=== PATIENT | female | born 1970 | race Caucasian/White ===

== ENCOUNTER 2017-11-05 19:33 | Emergency (ER) | payer OTHER ==
[2017-11-05 20:42] VITALS: BP 132/92
--- NOTE | 2017-11-05 20:54 | UC ---
Respiratory Complaint HPI - HPI Summary HPI Summary: C/O cough x 2 weeks with some wheezing. - History of Current Complaint Chief Complaint: UCGeneralIllness Stated Complaint: COUGH Time Seen by Provider: 11/05/17 20:45 Hx Obtained From: Patient Hx Last Menstrual Period: 09/05/14 ?: No Onset/Duration: Gradual Onset, Lasting Weeks - 2, Still Present Severity Initially: Moderate Severity Currently: Mild Pain Intensity: 0 Character: Cough: Nonproductive Alleviating Factors: Nothing Associated Signs And Symptoms: Positive: Wheezing, URI Related History: Seasonal Allergies - Allergies/Home Medications Allergies/Adverse Reactions: Allergies Allergy/AdvReac Type Severity Reaction Status Date / Time No Known Allergies Allergy Verified 11/05/17 20:42 PMH/Surg Hx/FS Hx/Imm Hx - Surgical History Surgical History: Yes Surgery Procedure, Year, and Place: T+A. R rotator cuff 2011 [facility] [place]. Vaginal tear repair 2010 [facility] [place]. Turbinate reduction 2008 [place]. Cysto stent [facility] [place]. Appendectomy 11/2015 at [facility] [place]. Trigger release right thumb 09/2015, & 2016 at [facility] [place]. LAP APPY [facility] [place] - Family History Known Family History: Positive: Cardiac Disease, Hypertension, Diabetes Family History: R & n/C - Social History Occupation: Employed Full-time Lives: With Family Alcohol Use: Occasionally Alcohol Amount: a couple/week Substance Use Type: None Smoking Status (MU): Former Smoker Type: Cigarettes Amount Used/How Often: 1/2 PPD X 26 YEARS Have You Smoked in the Last Year: No When Did the Patient Quit Smoking/Using Tobacco: 05/24/2015 Household Exposure Type: Cigarettes - Immunization History Most Recent Influenza Vaccination: FALL 2014 Most Recent Tetanus Shot: Unknown Most Recent Pneumonia Vaccination: Has not had Review of Systems Respiratory: Cough Is Patient Immunocompromised?: No All Other Systems Reviewed And Are Negative: Yes Physical Exam Triage Information Reviewed: Yes Appearance: Well-Appearing, No Pain Distress, Well-Nourished Vital Signs: Initial Vital Signs Temp 99.6 F 11/05/17 20:36 Pulse 70 11/05/17 20:36 Resp 12 11/05/17 20:36 BP 132/92 11/05/17 20:36 Pulse Ox 99 11/05/17 20:36 Vital Signs Reviewed: Yes Eyes: Positive: Conjunctiva Clear ENT: Positive: Nasal congestion, TMs normal Neck exam: Normal Respiratory: Positive: Wheezing - expiratory wheeze with cough Cardiovascular Exam: Normal Musculoskeletal Exam: Normal Neurological Exam: Normal Psychological Exam: Normal Skin Exam: Normal UC Diagnostic Evaluation - Laboratory O2 Sat by Pulse Oximetry: 99 Respiratory Course/Dx - Differential Dx/Diagnosis Differential Diagnosis/HQI/PQRI: Asthma, Lower Resp Infection, Sinusitis Provider Diagnoses: Acute bronchospasm. Allergic rhinitis Discharge - Discharge Plan Condition: Stable Disposition: HOME Prescriptions: predniSONE TAB* [Deltasone TAB*] 20 mg PO DAILY #18 tab Patient Education Materials: Bronchospasm (ED), Prednisone (By mouth) Referrals: Humble Burleson DO [Primary Care Provider] - Additional Instructions: NEILMED SINUS RINSE: CHECK OUT AT [facility]. Saline nasal wash helps with mucous, allergies and congestion. It can be used up to twice a day or only as needed. Use lukewarm tap water. It does not have to be sterilized or distilled water. Do 1/3 on each side and snort out of both nostrils. Repeat the process with 1/6 of the bottle on each side with snorting in between to finish the solution in the bottle
[2017-11-05] MEDS ORDERED: Albuterol HFA INHALER* 8 gm MDI INH ONE ×2 (20:55→20:58)
== END 2017-11-05 21:30 | disposition home or self-care (01) ==
LOC: UCCORT 19:33
DX: J30.9 Allergic rhinitis, unspecified (principal); J98.01 Acute bronchospasm; Z87.891 Personal history of nicotine dependence
CPT/HCPCS: 99212; A9270-GY; G0463

== ENCOUNTER 2019-12-27 12:42 | Emergency (ER) | payer OTHER ==
--- OUTSIDE RECORDS SUMMARY | 2019-12-27 12:53 | XMS REPORT | Continuity of Care Document ---
:1970 External Reference #:[id number] Author Name Humble Burleson D.O. (transmitted by agent of provider Iva Mitchell) Address [address] [place] [id number] Care Team Providers Name Role Phone JuancarlosEleDO jewell - Pain Medicine Care Team Information Small Engine Trainer Beto Robb MD - Allergy & Care Team Information Small Engine Trainer [phone] Immunology Jessica Johnson MD - Obstetrics & Care Team Information Small Engine Trainer [phone] Gynecology Nathan Hanson MD - Infectious Care Team Information Small Engine Trainer [phone] Disease Problems Active Problems Provider Date Migraine without aura, not refractory Jose Enrique Islas M.D. Onset: 09/06/2011 Dysthymia Jose Enrique Islas M.D. Onset: 09/06/2011 Urolith Jose Enrique Islas M.D. Onset: 01/24/2015 Adjustment disorder with mixed emotional Humble Burleson D.O. Onset: 2015 features Snapping thumb syndrome Humble Burleson D.O. Onset: 02/10/2016 Folliculitis decalvans Humble Burleson D.O. Onset: 05/23/2018 Gastroparesis syndrome Rosalinda Oleary Onset: 04/25/2019 Social History Type Date Description Comments Sex Unknown Tobacco Use Start: Unknown End: Former Cigarette Smoker Stopped in Sep. Prev Unknown 15 yr hx of smoking 1/2-1 ppd Smoking Status Reviewed: 11/16/19 Former Cigarette Smoker Stopped in [place]. Prev 15 yr hx of smoking 1/2-1 ppd ETOH Use Drinks Alcohol Occasionally Tobacco Use Start: Unknown Non Smoker Allergies, Adverse Reactions, Alerts Active Allergies Reaction Severity Comments Date Vancomycin Red Man's Syndrome When treating sepsis due to 05/20/2018 MRSA Inactive Allergies NKDA 12/05/2003 Medications Active Medications SIG Qnty Indications Ordering Date Provider Quetiapine Fumarate 50 mg once daily at 60tabs G47.00 [facility], 12/17/2019 bedtime; increase to Humble, D.O. 50mg Tablets 100 mg once daily on day 2 then continue 2 daily Hydroxyzine Pamoate 1 by mouth for 90caps [facility], 11/16/2019 anxiety and at night Humble, D.O. 100mg Capsules for insomnia Omeprazole take one capsule by 90caps K21.9 [facility], 11/15/2019 20mg mouth every day 30-60 Humble, D.O. Capsules DR minutes before a meal Bactrim DS 1 twice a day x 10 20tabs [facility], 11/10/2019 800-160mg days Humble, D.O. Tablets Trueplus Insulin use needle with b12 9units E53.8 [facility], 10/18/2019 Syringe/U-100/1ML/29G injection every Humble, D.O. X 1/2" 10days 29G X 1/2" 1 ML Misc Ondansetron 1-2 by mouth three 10tabs [facility], 09/18/2019 4mg Tablets times a day as needed Humble, D.O. Dispers for nausea Fluocinonide apply to affected 60ml R21 [facility], 08/06/2019 0.05% areas on scalp twice Humble, D.O. Solution a day as needed for psoriasis Operand Chlorhexidine wash daily for 14 473ml [facility], 08/03/2019 Gluconate days Humble, D.O. 4% Liquid Mupirocin apply to nares twice 22gm [facility], 08/03/2019 2% Ointment a day x10 days Humble, D.O. Cyanocobalamin inject 1ml 25ml [facility], 11/10/2018 intramuscularly every Humble, D.O. 1000mcg/ML Solution 10 days Probiotic 1 by mouth every day Unknown 05/22/2018 Capsules Neti Pot Kit Sinus use as directed [facility] Wash/Clear View Sharri Kate Kettle 2300-700mg Kit Escitalopram Oxalate take 1 tablet by 90tabs Benjy, 11/14/2015 mouth once daily Sharri Kate 20mg Tablets Alprazolam 1/2-1 by mouth twice [facility], 10/29/2015 0.5mg a day code a mdd 2 Sharri Kate Tablets Fluticasone 2 sprays into each 16gm Silcoff, 03/19/2015 Propionate nostril every day for [place] 50mcg/Act nasal congestion as Suspension needed Sumatriptan Succinate 1 tablet by mouth at 6tabs G43.009 Benjy, 2010 first sign of Sharri Kate 100mg Tablets migraine; may repeat in 2 hours if migraine partially relieved MDD 200mg History Medications Trueplus Insulin [facility], 10/18/2019 - Syringe/U-100/0.5ML/31G X Sharri Kate 10/18/2019 5/16" 31G X 5/16" 0.5 ML Misc Bactrim DS 1 twice a [facility]tabs [facility], 09/17/2019 - 800-160mg Tablets day x 10 [place] 09/27/2019 days Amoxicillin/Clavulanate 1 tab by 20tabs J01.90 Janel, 08/08/2019 - Potassium mouth twice [place] 08/18/2019 875-125mg Tablets a day x10 days H66.93 Temazepam Take 1 capsule by 30caps G47.00 Humble Burleson, 08/03/2019 - 30mg mouth daily at D.ODanilo 11/16/2019 Capsules bedtime as needed for trouble sleeping Medications Administered in Office Medication SIG Qnty Indications Ordering Provider Date B12 Injection Humble Burleson D.O. 11/10/2018 Injection SC/Im Injections Humble Burleson D.O. 11/10/2018 Injection B12 Injection Humble Burleson D.O. 10/20/2018 Injection SC/Im Injections Humble Burleson D.ODanilo 10/20/2018 Injection injection, kenalog, 10 mg Humble Burleson D.ODanilo 12/17/2016 Injection injection, kenalog, 10 mg Humble Burleson D.O. 09/03/2016 Injection injection, kenalog, 10 mg Humble Burleson D.O. 02/10/2016 Injection Immunizations CPT Code Status Date Vaccine Lot # [id number] Given 06/15/2019 Influenza Virus Vaccine, Quadrivalent, Split, [id number] Preservative Free 28492 Given 08/04/2018 Influenza Virus Vaccine, Quadrivalent, Split, [id number] Preservative Free 33271 Given 06/28/2017 Influenza Virus Vaccine, Quadrivalent, Split, [id number] Preservative Free 49667 Given 06/18/2016 Influenza Virus Vaccine, Quadrivalent, Split, [id number] Preservative Free 52176 Given 07/25/2015 Influenza Virus Vaccine, Quadrivalent, Split, [id number] Preservative Free 90662 Given 07/31/2014 Influenza Virus Vaccine, Quadrivalent, Split, [id number] Preservative Free 66785 Given 07/17/2013 Flu, Split Virus 3Yrs [id number] 19840 Given 06/21/2012 Flu, Split Virus 3Yrs [id number] 13143 Given 03/30/2011 Pneumococcal Immunization [id number] 01348 Given 03/30/2011 Adacel or Boostrix, TDaP [id number] 70743 Given 07/28/2010 Flu, Split Virus 3Yrs [id number] 97559 Given 06/06/2009 Flu, Split Virus 3Yrs [id number] Vital Signs Date Vital Result Comment 11/16/2019 1:00pm BP Systolic 120 mmHg BP Diastolic 80 mmHg 09/17/2019 4:53pm BP Systolic 124 mmHg BP Diastolic 84 mmHg Body Temperature 98.6 F Results Description No Information Available Procedures Date Code Description Status 11/16/2019 28204 Omt 7-8 Body Regions Completed 08/03/2019 91563 Omt 7-8 Body Regions Completed 03/16/2017 63223044 Mammogram Completed Medical Devices Description No Information Available Encounters Type Date Location Provider Dx Diagnosis Office Visit 12/17/2019 Main Office Sopchak, Humble, G47.00 Insomnia, unspecified 5:00p D.O. Office Visit 11/16/2019 Main Office Humble Burleson, M54.2 Cervicalgia 12:55p D.O. M54.5 Low back pain K31.84 Gastroparesis F43.23 Adjustment disorder with mixed anxiety and depressed mood M99.03 Segmental and somatic dysfunction of lumbar region M99.04 Segmental and somatic dysfunction of sacral region M99.05 Segmental and somatic dysfunction of pelvic region M99.00 Segmental and somatic dysfunction of head region M99.01 Segmental and somatic dysfunction of cervical region M99.08 Segmental and somatic dysfunction of rib cage M99.02 Segmental and somatic dysfunction of thoracic region Office Visit 09/17/2019 4:30p Main Office Vicky Mcleod, L03.317 Cellulitis of MD ding Z86.14 Personal history of methicillin resis staph infection Office Visit 08/08/2019 11:20a Main Office Morena Bajwa, J01.90 Acute sinusitis, PA unspecified H66.93 Otitis media, unspecified, bilateral Office Visit 08/03/2019 12:55p Main Office Humble Burleson D.Josh. K31.84 Gastroparesis F43.23 Adjustment disorder with mixed anxiety and depressed mood E66.9 Obesity, unspecified K58.0 Irritable bowel syndrome with diarrhea M99.08 Segmental and somatic dysfunction of rib cage M99.00 Segmental and somatic dysfunction of head region M99.01 Segmental and somatic dysfunction of cervical region M99.02 Segmental and somatic dysfunction of thoracic region M99.03 Segmental and somatic dysfunction of lumbar region M99.05 Segmental and somatic dysfunction of pelvic region M99.04 Segmental and somatic dysfunction of sacral region M99.06 Segmental and somatic dysfunction of lower extremity G47.00 Insomnia, unspecified Z68.32 Body mass index (BMI) 32.0-32.9, adult Assessments Date Code Description Provider 12/17/2019 G47.00 Insomnia, unspecified Humble Burleson D.O. 11/16/2019 M54.2 Cervicalgia Humble Burleson D.O. 11/16/2019 M54.5 Low back pain Humble Burleson D.O. 11/16/2019 K31.84 Gastroparesis Humble Burleson D.O. 11/16/2019 F43.23 Adjustment disorder with mixed anxiety and SopchakHumble , D.O. depressed mood 11/16/2019 M99.03 Segmental and somatic dysfunction of lumbar SopchristakHumble , D.O. region 11/16/2019 M99.04 Segmental and somatic dysfunction of sacral SopchakHumble , D.O. region 11/16/2019 M99.05 Segmental and somatic dysfunction of pelvic SopchakHumble , D.O. region 11/16/2019 M99.00 Segmental and somatic dysfunction of head SopchakSamiron, D.O. region 11/16/2019 M99.01 Segmental and somatic dysfunction of cervical SopchakHumble, D.O. region 11/16/2019 M99.08 Segmental and somatic dysfunction of rib cage Humble Burlseon, D.O. 11/16/2019 M99.02 Segmental and somatic dysfunction of thoracic SopchakHumble, D.O. region 09/17/2019 L03.317 Cellulitis of buttock Vicky Mcleod MD 09/17/2019 Z86.14 Personal history of Methicillin resistant Vicky Mcleod MD Staphylococcus aureus infection 08/08/2019 J01.90 Acute sinusitis, unspecified Morena Bajwa PA 08/08/2019 H66.93 Otitis media, unspecified, bilateral Morena Bajwa PA 08/03/2019 K31.84 Gastroparesis Humble Burleson D.O. 08/03/2019 F43.23 Adjustment disorder with mixed anxiety and SopHumble mora D.O. depressed mood 08/03/2019 E66.9 Obesity, unspecified SopchristakSamiron, D.O. 08/03/2019 K58.0 Irritable bowel syndrome with diarrhea Humble Burleson, D.O. 08/03/2019 M99.08 Segmental and somatic dysfunction of rib cage SopchristakHumble, D.O. 08/03/2019 M99.00 Segmental and somatic dysfunction of head SopchakHumble, D.O. region 08/03/2019 M99.01 Segmental and somatic dysfunction of cervical SopchristakHumble, D.O. region 08/03/2019 M99.02 Segmental and somatic dysfunction of thoracic Humble Burleson D.O. region 08/03/2019 M99.03 Segmental and somatic dysfunction of lumbar SopHumble mora D.O. region 08/03/2019 M99.05 Segmental and somatic dysfunction of pelvic SopHumble mora D.O. region 08/03/2019 M99.04 Segmental and somatic dysfunction of sacral SopHumble mora D.O. region 08/03/2019 M99.06 Segmental and somatic dysfunction of lower SopHumble mora D.Josh. extremity 08/03/2019 G47.00 Insomnia, unspecified Humble Burleson D.O. 08/03/2019 Z68.32 Body mass index (BMI) 32.0-32.9, adult Humble Burleson D.O. Plan of Treatment Future Appointment(s):12/20/2019 10:00 am - Humble Burleson D.O. at Main Deoycl5503/14/2020 12:55 pm - Humble Burleson D.O. at Main Bqkrug4701/15/2020 1:30 pm - Humble Burleson D.O. at Main Xahvoo9612/17/2019 - Humble Burleson D.O.G47.00 Insomnia, unspecifiedNew Medication:Quetiapine Fumarate 50 mg - 50 mg once daily at bedtime; increase to 100 mg once daily on day 2 thencontinue 2 dailyComments:TOV: 15min between video and phone call.Follow up:Telemed visit in 2 days recheck sleep. Functional Status Description No Information Available Mental Status Description No Information Available Referrals Refer to Reason for Referral Status Appt Date Nathan Hanson MD Recurrent skin infections Consult and Treat Sent [facility] [address] [place] [address], [place] [address] [phone]
--- OUTSIDE RECORDS SUMMARY | 2019-12-27 12:53 | XMS REPORT | Continuity of Care Document ---
:1970 External Reference #:[id number] Author Name Humble Burleson D.O. (transmitted by agent of provider Elaine Ac) Address [address] [place] [phone] Care Team Providers Name Role Phone JuancarlosEleDO jewell - Pain Medicine Care Team Information Airport Manager Beto Robb MD - Allergy & Care Team Information Airport Manager [phone] Immunology Jessica Johnson MD - Obstetrics & Care Team Information Airport Manager Gynecology Nathan Hanson MD - Infectious Care Team Information Airport Manager [phone] Disease Problems Active Problems Provider Date Migraine [...] Qnty Indications Ordering Date Provider Quetiapine Fumarate 2 pills at night. 60tabs G47.00 [facility], 12/17/2019 Humble, D.O. 50mg Tablets Hydroxyzine Pamoate 1 by mouth for 90caps [facility], 11/16/2019 anxiety and at night Humble, D.O. 100mg Capsules for insomnia Omeprazole take one capsule by 90caps K21.9 [facility], 11/15/2019 20mg mouth every day 30-60 Humble, D.O. Capsules DR minutes before a meal Trueplus Insulin use needle with b12 9units E53.8 [facility], 10/18/2019 Syringe/U-100/1ML/29G injection every Humble, D.O. X 1/2" 10days 29G X 1/2" 1 ML Misc Ondansetron 1-2 by mouth three 10tabs [facility], 09/18/2019 4mg Tablets times a day as needed Humble, D.O. Dispers for nausea Fluocinonide apply to affected 60ml R21 [facility], 08/06/2019 0.05% areas on scalp twice Humble, D.O. Solution a day as needed for psoriasis Operand Chlorhexidine wash daily for 14 473ml [facility], 08/03/2019 Gluconate days Humble, D.O. 4% Liquid Mupirocin apply to nares twice 22gm [facility], 08/03/2019 2% Ointment a day x10 days Humble, D.O. Cyanocobalamin inject 1ml 25ml [facility], 11/10/2018 intramuscularly every Humble, D.O. 1000mcg/ML Solution 10 days Probiotic 1 by mouth every day Unknown 05/22/2018 Capsules Neti Pot Kit Sinus use as directed 1units J01.00 [facility], 01/18/2017 Wash/Clear View Humble, D.O. Kettle 2300-700mg Kit Escitalopram Oxalate take 1 tablet by 90tabs Benjy, 11/14/2015 mouth once daily Sharri Kate 20mg Tablets Alprazolam 1/2-1 by mouth twice 60tabs Benjy, 10/29/2015 0.5mg a day code a mdd 2 Sharri Kate Tablets Fluticasone 2 sprays into each 16gm Janel, 03/19/2015 Propionate nostril every day for Da Quispe 50mcg/Act nasal congestion as Suspension needed Sumatriptan Succinate 1 tablet by mouth at 6tabs G43.009 Benjy, 2010 first sign of Sharri Kate 100mg Tablets migraine; may repeat in 2 hours if migraine partially relieved MDD 200mg History Medications Bactrim DS 1 twice a day x 20tabs Humble Burleson, 11/10/2019 - 10 days D.O. 11/29/2019 800-160mg Tablets Trueplus Insulin Humble Burleson, 10/18/2019 - Syringe/U-100/0.5ML D.O. 10/18/2019 /31G X 5/16" 31G X 5/16" 0.5 ML Misc Bactrim DS 1 twice a day x 20tabs Jose Enrique Islas, 09/17/2019 - 10 days M.D. 09/27/2019 800-160mg Tablets Amoxicillin/Clavula 1 tab by mouth 20tabs J01.90 Jose Enrique Islas, 2018 - summer Potassium twice a day x10 M.D. 08/18/2019 days 875-125mg Tablets H66.93 Temazepam Take 1 capsule by 30caps G47.00 Humble Burleson, 08/03/2019 - 30mg mouth daily at D.O. 11/16/2019 Capsules bedtime as needed for trouble sleeping Medications Administered in Office Medication SIG Qnty Indications Ordering Provider Date B12 Injection Humble Burleson D.ODanilo 11/10/2018 Injection SC/Im Injections Humble Burleson D.ODanilo 11/10/2018 Injection B12 Injection Humble Burleson D.ODanilo 10/20/2018 Injection SC/Im Injections Humble Burleson D.O. 10/20/2018 Injection injection, kenalog, 10 mg Humble Burleson D.O. 12/17/2016 Injection injection, kenalog, 10 mg Humble Burleson D.O. 09/03/2016 Injection injection, kenalog, 10 mg Humble Burleson D.O. 02/10/2016 Injection Immunizations CPT Code Status Date Vaccine Lot # [id number] Given 06/15/2019 Influenza Virus Vaccine, Quadrivalent, Split, [id number] Preservative Free 14296 Given 08/04/2018 Influenza Virus Vaccine, Quadrivalent, Split, [id number] Preservative Free 83698 Given 06/28/2017 Influenza Virus Vaccine, Quadrivalent, Split, [id number] Preservative Free 87174 Given 06/18/2016 Influenza Virus Vaccine, Quadrivalent, Split, [id number] Preservative Free 94754 Given 07/25/2015 Influenza Virus Vaccine, Quadrivalent, Split, [id number] Preservative Free 95746 Given 07/31/2014 Influenza Virus Vaccine, Quadrivalent, Split, [id number] Preservative Free 67152 Given 07/17/2013 Flu, Split Virus 3Yrs [id number] 94795 Given 06/21/2012 Flu, Split Virus 3Yrs [id number] 20830 Given 03/30/2011 Pneumococcal Immunization [id number] 08913 Given 03/30/2011 Adacel or Boostrix, TDaP [id number] 96299 Given 07/28/2010 Flu, Split Virus 3Yrs [id number] 70028 Given 06/06/2009 Flu, Split Virus 3Yrs [id number] Vital Signs Date Vital Result Comment 11/16/2019 1:00pm BP Systolic 120 mmHg BP Diastolic 80 mmHg 09/17/2019 4:53pm BP Systolic 124 mmHg BP Diastolic 84 mmHg Body Temperature 98.6 F Results Description No Information Available Procedures Date Code Description Status 11/16/2019 74865 Omt 7-8 Body Regions Completed 08/03/2019 75527 Omt 7-8 Body Regions Completed 03/16/2017 [id number] Mammogram Completed Medical Devices Description No Information Available Encounters Type Date Location Provider Dx Diagnosis Office Visit 12/20/2019 Main Office Humble Burleson, G47.00 Insomnia, unspecified 10:00a D.O. Office Visit 12/17/2019 Main Office Humble Burleson, G47.00 Insomnia, unspecified 5:00p D.O. Office Visit [...] Office Vicky Mcleod, L03.317 Cellulitis of MD buttock Z86.14 Personal history of methicillin resis staph infection Office Visit 08/08/2019 11:20a Main Office Morena Bajwa, J01.90 Acute sinusitis, [place] unspecified H66.93 Otitis media, unspecified, bilateral Office Visit 08/03/2019 12:55p Main Office Humble Burleson, D.O. K31.84 Gastroparesis F43.23 Adjustment disorder with mixed [...] 32.0-32.9, adult Assessments Date Code Description Provider 12/20/2019 G47.00 Insomnia, unspecified Humble Burleson D.O. 12/17/2019 G47.00 Insomnia, unspecified Humble Burleson D.O. 11/16/2019 M54.2 Cervicalgia Humble Burleson D.O. 11/16/2019 M54.5 Low back pain Humble Burleson, D.O. 11/16/2019 K31.84 Gastroparesis SopchristakHumble, D.O. 11/16/2019 F43.23 Adjustment disorder with mixed anxiety and SopchaHumble dixon , D.O. depressed mood 11/16/2019 M99.03 Segmental and somatic dysfunction of lumbar SopchakHumble , D.O. region 11/16/2019 M99.04 Segmental and somatic dysfunction of sacral SopchakHumble , D.O. region 11/16/2019 M99.05 Segmental and somatic dysfunction of pelvic SopchakHumble , D.O. region 11/16/2019 M99.00 Segmental and somatic dysfunction of head SopHumble mora, D.O. region 11/16/2019 M99.01 Segmental and somatic dysfunction of cervical SopchakHumble, D.O. region 11/16/2019 M99.08 Segmental and somatic dysfunction of rib cage Humble Burleson, D.O. 11/16/2019 M99.02 Segmental and somatic dysfunction of thoracic SopHumble mora, D.O. region 09/17/2019 L03.317 Cellulitis of buttock Vicky Mcleod MD 09/17/2019 Z86.14 Personal history of Methicillin resistant Vicky Mcleod MD Staphylococcus aureus infection 08/08/2019 J01.90 Acute sinusitis, unspecified Morena Bajwa PA 08/08/2019 H66.93 Otitis media, unspecified, bilateral Morena Bajwa PA 08/03/2019 K31.84 Gastroparesis Humble Burleson, D.O. 08/03/2019 F43.23 Adjustment disorder with mixed anxiety and SopHumble mora , D.O. depressed mood 08/03/2019 E66.9 Obesity, unspecified Humble Burleson, D.O. 08/03/2019 K58.0 Irritable bowel syndrome with diarrhea Humble Burleson, D.O. 08/03/2019 M99.08 Segmental and somatic dysfunction of rib cage ChristopherkHumble, D.O. 08/03/2019 M99.00 Segmental and somatic dysfunction of head SopchakHumble D.O. region 08/03/2019 M99.01 Segmental and somatic dysfunction of cervical SopchakHumble D.O. region 08/03/2019 M99.02 Segmental and somatic dysfunction of thoracic SopchakHumble D.O. region 08/03/2019 M99.03 Segmental and somatic dysfunction of lumbar SopchakHumble D.O. region 08/03/2019 M99.05 Segmental and somatic dysfunction of pelvic SopchakHumble D.O. region 08/03/2019 M99.04 Segmental and somatic dysfunction of sacral SopchakHumble D.O. region 08/03/2019 M99.06 Segmental and somatic dysfunction of lower SopchakHumble D.O. extremity 08/03/2019 G47.00 Insomnia, unspecified Humble Burleson D.O. 08/03/2019 Z68.32 Body mass index (BMI) 32.0-32.9, adult Humble Burleson D.O. Plan of Treatment Future Appointment(s):03/14/2020 12:55 pm - Humble Burleson D.O. at Main Iveohm3001/15/2020 1:30 pm - Humble Burleson D.O. at Main Gtnrvk9612/20/2019 - Humble Burleson D.O.G47.00 Insomnia, unspecifiedComments:TOV: 7:08Reduce alprazolam to 1 pill at night. Continue hydroxyzine and quetiapine at night. Continue lexapro daily.Follow up:Telemed visit in 1 month recheck sleep/anxiety/ meds Functional Status Description No Information Available Mental Status Description No Information Available Referrals Refer to Reason for Referral Status Appt Date Nathan Hanson MD Recurrent skin infections Consult and Treat Closed [facility] [address] [place] [address], [place] [address] [phone]
--- OUTSIDE RECORDS SUMMARY | 2019-12-27 12:53 | XMS REPORT | Continuity of Care Document ---
:1970 External Reference #:[id number] Author Name Humble Burleson D.O. (transmitted by agent of provider Elaine Ac) Address [address] [place] [phone] Care Team Providers Name Role Phone Bal Bauer DO - Pain Medicine Care Team Information Interceptor Operator Beto Robb MD - Allergy & Care Team Information Interceptor Operator [phone] Immunology Jessica Johnson MD - Obstetrics & Care Team Information Interceptor Operator Gynecology Problems Active Problems Provider Date Migraine without [...] Medications SIG Qnty Indications Ordering Date Provider Hydroxyzine Pamoate 1 by mouth for 90caps Sopchak, 11/16/2019 anxiety and at night Humble, D.O. 100mg Capsules for insomnia Omeprazole take one capsule by 90caps K21.9 [facility], 11/15/2019 20mg mouth every day 30-60 Humble, D.O. Capsules DR minutes before a meal Bactrim DS 1 twice a day x 10 20tabs L03.317 Count Includes [facility], 11/10/2019 800-160mg days Humble, D.O. Tablets Trueplus Insulin use needle with b12 9units E53.8 Count Includes [facility], 10/18/2019 Syringe/U-100/1ML/29G injection every Humble, D.O. X 1/2" 10days 29G X 1/2" 1 ML Misc Ondansetron 1-2 by mouth three 10tabs Count Includes [facility], 09/18/2019 4mg Tablets times a day as needed Humble, D.O. Dispers for nausea Fluocinonide apply to affected 60ml R21 Count Includes [facility], 08/06/2019 0.05% areas on scalp twice Humble, D.O. Solution a day as needed for psoriasis Operand Chlorhexidine wash daily for 14 473ml Count Includes [facility], 08/03/2019 Gluconate days Humble, D.O. 4% Liquid Mupirocin apply to nares twice 22gm Count Includes [facility], 08/03/2019 2% Ointment a day x10 days Humble, D.O. Cyanocobalamin inject 1ml 25ml Count Includes [facility], 11/10/2018 intramuscularly every Humble, D.O. 1000mcg/ML Solution 10 days Probiotic 1 by mouth every day Unknown 05/22/2018 Capsules Neti Pot Kit Sinus use as directed 1units J01.00 Count Includes [facility], 01/18/2017 Wash/Clear View Humble, D.O. Kettle 2300-700mg Kit Escitalopram Oxalate take 1 tablet by 90tabs Count Includes [facility], 11/14/2015 mouth once daily Sharri Kate 20mg Tablets Alprazolam 1/2-1 by mouth twice 60tabs Benjy, 10/29/2015 0.5mg a day code a mdd 2 Sharri Kate Tablets Fluticasone 2 sprays into each 16gm Silcoadrian, 03/19/2015 Propionate nostril every day for Da Quispe 50mcg/Act nasal congestion as Suspension needed Sumatriptan Succinate 1 tablet by mouth at 6tabs G43.009 [facility] first sign of Iris Kate. 100mg Tablets migraine; may repeat in 2 hours if migraine partially relieved MDD 200mg History Medications Trueplus Insulin Count Includes [facility], 10/18/2019 - Syringe/U-100/0.5ML/31G X René Kate.ODanilo 10/18/2019 5/16" 31G X 5/16" 0.5 ML Misc Bactrim DS 1 twice a 20tabs L03.31 Janel, 09/17/2019 - 800-160mg Tablets day x 10 7 Da Quispe 09/27/2019 days Amoxicillin/Clavulanate 1 tab by 20tabs J01.90 Janel, 08/08/2019 - Potassium mouth twice Da Quispe 08/18/2019 875-125mg Tablets a day x10 days H66.93 Temazepam Take 1 capsule by 30caps G47.00 Benjy, 08/03/2019 - 30mg mouth daily at bedtime Sharri Kate 11/16/2019 Capsules as needed for trouble sleeping Erythromycin Take 1 tablet by mouth 90tabs K31.84 Benjy, 06/15/2019 - 250mg 3 times per day for 28 René Kate.ODanilo 08/02/[address] days before meals for decreased gastrointestinal motility K58.0 Quetiapine Fumarate take one tablet 30tabs F43.23 Humble Burleson, 2018 - by mouth every D.O. 08/03/2019 25mg Tablets evening for help with sleep Medications Administered in Office Medication SIG Qnty Indications Ordering Provider Date B12 Injection Humble Burleson D.O. 11/10/2018 Injection SC/Im Injections Humble Burleson D.ODanilo 11/10/2018 Injection B12 Injection Humble Burleson D.ODanilo 10/20/2018 Injection SC/Im Injections Humble Burleson D.O. 10/20/2018 Injection injection, kenalog, 10 mg Humble Burleson D.O. 12/17/2016 Injection injection, kenalog, 10 mg Humble Burleson D.O. 09/03/2016 Injection injection, kenalog, 10 mg Humble Burleson D.O. 02/10/2016 Injection Immunizations CPT Code Status Date Vaccine Lot # [id number] Given 06/15/2019 Influenza Virus Vaccine, Quadrivalent, Split, [id number] Preservative Free 10998 Given 08/04/2018 Influenza Virus Vaccine, Quadrivalent, Split, [id number] Preservative Free 52724 Given 06/28/2017 Influenza Virus Vaccine, Quadrivalent, Split, [id number] Preservative Free 53363 Given 06/18/2016 Influenza Virus Vaccine, Quadrivalent, Split, [id number] Preservative Free 26869 Given 07/25/2015 Influenza Virus Vaccine, Quadrivalent, Split, [id number] Preservative Free 15334 Given 07/31/2014 Influenza Virus Vaccine, Quadrivalent, Split, [id number] Preservative Free 03600 Given 07/17/2013 Flu, Split Virus 3Yrs [id number] 04781 Given 06/21/2012 Flu, Split Virus 3Yrs [id number] 39271 Given 03/30/2011 Pneumococcal Immunization [id number] 98934 Given 03/30/2011 Adacel or Boostrix, TDaP [id number] 95654 Given 07/28/2010 Flu, Split Virus 3Yrs [id number] 69935 Given 06/06/2009 Flu, Split Virus 3Yrs [id number] Vital Signs Date Vital Result Comment 11/16/2019 1:00pm BP Systolic 120 mmHg BP Diastolic 80 mmHg 09/17/2019 4:53pm BP Systolic 124 mmHg BP Diastolic 84 mmHg Body Temperature 98.6 F Results Description No Information Available Procedures Date Code Description Status 11/16/2019 25867 Omt 7-8 Body Regions Completed 08/03/2019 95020 Omt 7-8 Body Regions Completed 06/15/2019 21841 Electrocardiogram Complete Completed 03/16/2017 [id number] Mammogram Completed Medical Devices Description No Information Available Encounters Type Date Location Provider Dx Diagnosis Office Visit 11/16/2019 12:55p Main Office Humble Burleson D.O. M54.2 Cervicalgia M54.5 Low back pain K31.84 Gastroparesis F43.23 [...] Visit 08/03/2019 12:55p Main Office Humble Burleson D.O. K31.84 Gastroparesis F43.23 Adjustment disorder with [...] Z68.32 Body mass index (BMI) 32.0-32.9, adult Office Visit 06/15/2019 4:45p Main Office Humble Burleson D.O. K31.84 Gastroparesis F43.23 Adjustment disorder with mixed anxiety and depressed mood M54.31 Sciatica, right side R10.30 Lower abdominal pain, unspecified D51.9 Vitamin B12 deficiency anemia, unspecified Z86.14 Personal history of methicillin resis staph infection K58.0 Irritable bowel syndrome with diarrhea R11.0 Nausea Z23 Encounter for immunization Z41.8 Encntr for oth proc for purpose [facility] Assessments Date Code Description Provider 11/16/2019 M54.2 Cervicalgia Humble Burleson D.O. 11/16/2019 M54.5 Low back pain Humble Burleson D.O. 11/16/2019 K31.84 Gastroparesis Humble Burleson, D.O. 11/16/2019 F43.23 Adjustment disorder with mixed anxiety and SopchakHumble , D.O. depressed mood 11/16/2019 M99.03 Segmental and somatic dysfunction of lumbar SopHumble mora D.O. region 11/16/2019 M99.04 Segmental and somatic dysfunction of sacral SopchakHumble , D.O. region 11/16/2019 M99.05 Segmental and somatic dysfunction of pelvic SopchristakHumble , D.O. region 11/16/2019 M99.00 Segmental and somatic dysfunction of head SopchakHumble, D.O. region 11/16/2019 M99.01 Segmental and somatic [...] Morena Bajwa PA 08/03/2019 K31.84 Gastroparesis Humble Bruleson D.O. 08/03/2019 F43.23 Adjustment disorder with mixed anxiety and Humble Burleson D.O. depressed mood 08/03/2019 E66.9 Obesity, unspecified SopHumble mora D.O. 08/03/2019 K58.0 Irritable bowel syndrome with diarrhea Humble Burleson D.O. 08/03/2019 M99.08 Segmental and somatic dysfunction of rib cage Humble Burleson D.O. 08/03/2019 M99.00 Segmental and somatic dysfunction of head SopchakHumble, D.O. region 08/03/2019 M99.01 Segmental and somatic dysfunction of cervical SopchakHumble, D.O. region 08/03/2019 M99.02 Segmental and somatic dysfunction of thoracic SopchakHumble, D.O. region 08/03/2019 M99.03 Segmental and somatic dysfunction of lumbar SopchakHumble , D.O. region 08/03/2019 M99.05 Segmental and somatic dysfunction of pelvic SopchristakHumble , D.O. region 08/03/2019 M99.04 Segmental and somatic dysfunction of sacral SopchakHumble , D.O. region 08/03/2019 M99.06 Segmental and somatic dysfunction of lower SopchakHumble D.O. extremity 08/03/2019 G47.00 Insomnia, unspecified Humble Burleson D.O. 08/03/2019 Z68.32 Body mass index (BMI) 32.0-32.9, adult Humble Burleson D.O. 06/15/2019 K31.84 Gastroparesis Humble Burleson D.O. 06/15/2019 F43.23 Adjustment disorder with mixed anxiety and Humble Burleson D.O. depressed mood 06/15/2019 M54.31 Sciatica, right side Humble Burleson D.O. 06/15/2019 R10.30 Lower abdominal pain, unspecified Humble Burleson D.O. 06/15/2019 D51.9 Vitamin B12 deficiency anemia, unspecified Humble Burleson D.O. 06/15/2019 Z86.14 Personal history of Methicillin resistant Humble Burleson D.O. Staphylococcus aur 06/15/2019 K58.0 Irritable bowel syndrome with diarrhea Humble Burleson D.O. 06/15/2019 R11.0 Nausea Humble Burleson D.O. 06/15/2019 Z23 Encounter for immunization Humble Burleson D.O. 06/15/2019 Z41.8 Encounter for other procedures for purposes Humble Burleson D.O. other than remedying health state Plan of Treatment Future Appointment(s):03/14/2020 12:55 pm - Humble Burleson D.O. at Main Ohztne2001/15/2020 1:30 pm - Humble Burleson D.O. at Main Ukzisq5911/16/2019 - Humble Burleson D.O.M54.2 CervicalgiaFollow up:2 months OMMeM54.5 Low back painK31.84 ZtdnkdnmmqknlM09.23 Adjustment disorder with mixed anxiety and depressed moodM99.03 Segmental and somatic dysfunction of lumbar dnanuwG54.04 Segmental and somatic dysfunction of sacral sfumsgS76.05 Segmental and somatic dysfunction of pelvic tbplwrG50.00 Segmental and somatic dysfunction of head fttednR59.01 Segmental and somatic dysfunction of cervical gaeetkT93.08 Segmental and somatic dysfunction of rib cageM99.02 Segmental and somatic dysfunction of thoracic region Functional Status Description No Information Available Mental Status Description No Information Available Referrals Description No Information Available
--- OUTSIDE RECORDS SUMMARY | 2019-12-27 12:53 | XMS REPORT | Continuity of Care Document ---
:1970 External Reference #:[id number] Author Name Vee Torres NP Address [address] [place] [address] Care Team Providers Name Role Phone Jose Enrique Islas MD - Internal Care Team Information Pharmacy Services Director Medicine Carlito Howard MD - Family Care Team Information Pharmacy Services Director [phone] Medicine Saravanan Barry MD - Surgery Care Team Information Pharmacy Services Director [phone] Problems Description No Information Available Social History Type Date Description Comments Sex Unknown ETOH Use Occasionally consumes alcohol Tobacco Use Start: Unknown End: Patient is a former smoker quit 2014 Unknown Smoking Status Reviewed: 12/14/19 Patient is a former smoker quit 2014 Exercise Type/Frequency Does not exercise Allergies, Adverse Reactions, Alerts Active Allergies Reaction Severity Comments Date Vancomycin IV caused red man syndrome 12/14/2019 Inactive Allergies NKDA 03/31/2015 Medications Active Medications SIG Qnty Indications Ordering Provider Date Mupirocin apply to both 22gm B95.62 Vee Raines 12/14/2019 2% Ointment nares twice LISA Torres daily for 5 days Alprazolam Sopchak, Humble 0.5mg Tablets DO Murali Escitalopram Oxalate Sopchak, Humble 20mg DO Murali Tablets Percocet 1 by mouth Unknown 5-325mg Tablets every 4 hours as needed pain Probiotic Daily 1 by mouth Unknown Capsules every day with food Omeprazole Foor-Pessin, 20mg Capsules Da [address] DR Hydroxyzine Pamoate Benjy, Humble 50mg Murali, DO Capsules Medications Administered in Office Medication SIG Qnty Indications Ordering Provider Date Depomedrol 40MG RAMON Zabala 08/21/2015 Injection Depomedrol 80MG Sheba Alvarado M.D. 03/31/2015 Injection Immunizations Description No Information Available Vital Signs Date Vital Result Comment 12/14/2019 2:08pm Height 70 inches 5'10" Weight 220.00 lb Heart Rate 64 /min BP Systolic Sitting 110 mmHg BP Diastolic Sitting 72 mmHg Respiratory Rate 14 /min Body Temperature 98.2 F BMI (Body Mass Index) 31.6 kg/m2 03/01/2016 2:50pm Weight 206.00 lb Heart Rate 71 /min BP Systolic Sitting 108 mmHg BP Diastolic Sitting 72 mmHg O2 % BldC Oximetry 98 % Results Description No Information Available Procedures Description No Information Available Medical Devices Description No Information Available Encounters Description No Information Available Assessments Date Code Description Provider 12/14/2019 B95.62 Methicillin resistant Staphylococcus Vee Torres NP aureus infection as the cause of diseases classified elsewhere Plan of Treatment 12/14/2019 - Vee Torres NPB95.62 Methicillin resis staph infct causing diseases classd elswhrNew Medication:Mupirocin 2 % - apply to both nares twice daily for 5 daysFollow up:4-6 weeks (Telemed ok) Functional Status Description No Information Available Mental Status Description No Information Available Referrals Description No Information Available
--- OUTSIDE RECORDS SUMMARY | 2019-12-27 12:53 | XMS REPORT | Continuity of Care Document ---
:1970 External Reference #:[id number] Author Name Humble Burleson D.O. (transmitted by agent of provider Elaine Ac) Address [address] [place] [id number] Care Team Providers Name Role Phone JuancarlosEleDO jewell - Pain Medicine Care Team Information Panel Sewer Beto Robb MD - Allergy & Care Team Information Panel Sewer [phone] Immunology Jessica Johnson MD - Obstetrics & Care Team Information Panel Sewer Gynecology Nathan Hanson MD - Infectious Care Team Information Panel Sewer [phone] Disease Problems Active Problems Provider Date Migraine [...] 50 mg once daily at 60tabs G47.00 [facility], 12/17/2019 bedtime; increase to Humble, D.O. 50mg Tablets 100 mg once daily on day 2 then continue 2 daily Hydroxyzine Pamoate 1 by mouth for 90caps [facility], 11/16/2019 anxiety and at night Humble, D.O. 100mg Capsules for insomnia Omeprazole take one capsule by 90caps K21.9 [facility], 11/15/2019 20mg mouth every day 30-60 Humble, D.O. Capsules DR minutes before a meal Bactrim DS 1 twice a day x 10 20tabs [facility], 11/10/2019 800-160mg days Humble, D.O. Tablets Trueplus Insulin use needle with b12 9units E53.8 [facility], 10/18/2019 Syringe/U-100/1ML/29G injection every Humble, D.O. X 1/2" 10days 29G X 1/2" 1 ML Misc Ondansetron 1-2 by mouth three 10tabs [facility], 09/18/2019 4mg Tablets times a day as needed Humble, D.O. Dispers for nausea Fluocinonide apply to affected 60ml R21 [facility], 08/06/2019 0.05% areas on scalp twice Humble, D.O. Solution a day as needed for psoriasis Operand Chlorhexidine wash daily for 14 473ml [facility], 08/03/2019 Gluconate days Humble, D.O. 4% Liquid Mupirocin apply to nares twice 22gm [facility], 08/03/2019 2% Ointment a day x10 days Humble, D.O. Cyanocobalamin inject 1ml 25ml [facility], 11/10/2018 intramuscularly every Humble, D.O. 1000mcg/ML Solution 10 days Probiotic 1 by mouth every day Unknown 05/22/2018 Capsules Neti Pot Kit Sinus use as directed [facility] Wash/Clear View Sharri Kate Kettle 2300-700mg Kit Escitalopram Oxalate take 1 tablet by 90tabs Benjy, 11/14/2015 mouth once daily Sharri Kate 20mg Tablets Alprazolam 1/2-1 by mouth twice [facility]tabs [facility] 10[facility]2015 0.5mg a day code a mdd [...] relieved MDD 200mg History Medications Trueplus Insulin [facility], 10/18/2019 - Syringe/U-100/0.5ML/31G X Sharri Kate 10/18/2019 5/16" 31G X 5/16" 0.5 ML Misc Bactrim DS 1 [facility] a [facility] 09/17[facility]2019 - 800-160mg Tablets day x 10 [...] CPT Code Status Date Vaccine Lot # [id number] Given 06/15/2019 Influenza Virus Vaccine, Quadrivalent, Split, [id number] Preservative Free 93866 Given 08/04/2018 Influenza Virus Vaccine, Quadrivalent, Split, [id number] Preservative Free 13470 Given 06/28/2017 Influenza Virus Vaccine, Quadrivalent, Split, [id number] Preservative Free 20936 Given 06/18/2016 Influenza Virus Vaccine, Quadrivalent, Split, [id number] Preservative Free 50382 Given 07/25/2015 Influenza Virus Vaccine, Quadrivalent, Split, [id number] Preservative Free 25212 Given 07/31/2014 Influenza Virus Vaccine, Quadrivalent, Split, [id number] Preservative Free 24255 Given 07/17/2013 Flu, Split Virus 3Yrs [id number] 08431 Given 06/21/2012 Flu, Split Virus 3Yrs [id number] 07256 Given 03/30/2011 Pneumococcal Immunization [id number] 27005 Given 03/30/2011 Adacel or Boostrix, TDaP [id number] 25075 Given 07/28/2010 Flu, Split Virus 3Yrs [id number] 31602 Given 06/06/2009 Flu, Split Virus 3Yrs [id number] Vital Signs Date Vital Result Comment 11/16/2019 1:00pm BP Systolic 120 mmHg BP Diastolic 80 mmHg 09/17/2019 4:53pm BP Systolic 124 mmHg BP Diastolic 84 mmHg Body Temperature 98.6 F Results Description No Information Available Procedures Date Code Description Status 11/16/2019 54052 Omt 7-8 Body Regions Completed 08/03/2019 87966 Omt 7-8 Body Regions Completed 03/16/2017 [id number] Mammogram Completed Medical Devices Description No Information [...] am - Humble Burleson D.O. at Main Yoebbs2003/14/2020 12:55 pm - Humble Burleson D.O. at Main Qnlypu7701/15/2020 1:30 pm - Humble Burleson D.O. at Main Nmzkwr3212/17/2019 - Humble Burleson D.O.G47.00 Insomnia, unspecifiedNew Medication:Quetiapine [...] Recurrent skin infections Consult and Treat Sent [facility] [address] [place] [address], [place] [address] [phone]
--- OUTSIDE RECORDS SUMMARY | 2019-12-27 12:53 | XMS REPORT | Continuity of Care Document ---
:1970 External Reference #:[id number] Author Name Lilly Burnham MD Address [address] [place] [id number] Care Team Providers Name Role Phone Humble Burleson DO Care Team Information Track Grinder [phone] Christine Marina PA Care Team Information Track Grinder [phone] Problems Description No Information Available Social History Type Date Description Comments Sex Unknown Tobacco Use Start: Unknown End: Unknown Patient is a former smoker Smoking Status Reviewed: 08/31/19 Patient is a former smoker Allergies, Adverse Reactions, Alerts Active Allergies Reaction Severity Comments Date Vancomycin Red Man's Syndrome 03/19/2019 Medications Active Medications SIG Qnty Indications Ordering Date Provider Dicyclomine HCL Take 1 capsule every 60caps Lilly 09/05/2019 10mg 8-12 hours as needed Foor-Pessin, Capsules for abdominal MD cramping/pain Xifaxan Take 1 tablet three 42tabs Lilly 08/31/2019 550mg Tablets times a day for 14 Foor-Pessin, days. MD Omeprazole Take 1 capsule by 30caps Lilly 08/31/2019 20mg mouth daily. take Foor-Pessin, Capsules DR 30-60 minutes before MD a meal. Hydroxyzine HCL 1-2 tabs by mouth at 180tabs Humble Burleson, 02/19/2019 50mg bedtime as needed for DO Tablets insomnia Trazodone HCL take 1 tablet by 90tabs G47.00 Humble Burleson, 01/10/2019 50mg mouth daily at DO Tablets bedtime for trouble sleeping Cyanocobalamin inject 1ml 25units D51.9 Humble Burleson, 11/10/2018 intramuscularly every DO 1000mcg/ML Solution 2 weeks Sinus Wash Saline use as directed 1units J01.00 ChristopherHumble dixon, 01/18/2017 Refills DO 2300-700mg Packet Fluocinonide apply a thin layer to 30units R21 LannyHumble mora, 11/03/2016 0.05% affected areas on DO Cream hand, wrist and neck, up to 2x/day as needed for itchy rash; do not use on face Escitalopram Oxalate take 1 tablet by 90tabs BenjyHumble, 11/14/2015 mouth once daily DO 20mg Tablets Alprazolam 1/2-1 by mouth twice 60tabs BenjyHumble, 10/29/2015 0.5mg a day code a mdd 2 DO Tablets Fluticasone 2 sprays into each 16units Silcoadrian, 03/19/2015 Propionate nostril every day for MD Jose Enrique 50mcg/Act nasal congestion as Suspension needed Sumatriptan 1 tablet by mouth at 6tabs G43.009 LannyHumble mora, 09/06/2011 Succinate first sign of DO 100mg migraine; may repeat Tablets in 2 hours if migraine partially relieved MDD 200mg Ondansetron prn-Nausea Unknown 4mg Tablets Dispers Immunizations Description No Information Available Vital Signs Date Vital Result Comment 08/31/2019 3:12pm Height 70 inches 5'10" Weight 215.00 lb BP Systolic 127 mmHg BP Diastolic 90 mmHg Heart Rate 69 /min BMI (Body Mass Index) 30.8 kg/m2 04/24/2019 8:10am Height 70 inches 5'10" Weight 220.00 lb BP Systolic 115 mmHg BP Diastolic 87 mmHg Heart Rate 77 /min BMI (Body Mass Index) 31.6 kg/m2 Results Test Acquired Date Facility Test Result H/L Range Note Laboratory test 10/05/2019 [facility] Vitamin B12 536 pg/mL Normal 180-914 1 finding C Reactive Protein < 1.00 mg/L Normal <8.01 Vitamin D Total 25(Oh) 53.4 ng/mL High 20-50 2 Laboratory test 05/14/2019 [facility] Breath Test NEGATIVE finding [address] [facility] [place] [address] [phone] 1 Normal Range 180 to 914 Indeterminate Range 145 to 180 Deficient Range <145 2 Total 25-Hydroxyvitamin D2 and D3 (25-OH-VitD) <10 ng/mL (severe deficiency) 10-19 ng/mL (mild to moderate deficiency) 20-50 ng/mL (optimum levels) 51-80 ng/mL (increased risk of hypercalciuria) >80 ng/mL (toxicity possible) Procedures Date Code Description Status 05/14/2019 98562 Breath Hydrogen Completed Medical Devices Description No Information Available Encounters Type Date Location Provider Dx Diagnosis Office Visit 08/31/2019 [facility] R11.2 Nausea with 3:[facility] Burn[facility] MD vomiting, unspecified R10.10 Upper abdominal pain, unspecified R14.0 Abdominal distension (gaseous) K31.84 Gastroparesis Assessments Date Code Description Provider 08/31/2019 R11.2 Nausea with vomiting, unspecified Lilly Burnham MD 08/31/2019 R10.10 Upper abdominal pain, unspecified Lilly Burnham MD 08/31/2019 R14.0 Abdominal distension (gaseous) Lilly Burnham MD 08/31/2019 K31.84 Gastroparesis Lilly Burnham MD 05/14/2019 R11.2 Nausea with vomiting, unspecified Lilly Burnham MD 05/14/2019 R10.10 Upper abdominal pain, unspecified Lilly Burnham MD 05/14/2019 R14.0 Abdominal distension (gaseous) Lilly Burnham MD Plan of Treatment No Information Available Functional Status Description No Information Available Mental Status Description No Information Available Referrals Description No Information Available
[2019-12-27 13:05] VITALS: BP 130/74
--- NOTE | 2019-12-27 13:30 | UC ---
Skin Complaint HPI - HPI Summary HPI Summary: 49-year-old female presents for abscess to her left groin. 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 She is followed by Dr. Villafana, infectious disease, for this. States this abscess started approximately 2 days ago that has progressively worsened. He was able to express a small amount of drainage yesterday. Patient reports that her last episode required 2 rounds of Bactrim to fully clear. Denies fever or chills. - History of Current Complaint Chief Complaint: UCSkin Time Seen by Provider: 12/27/19 13:06 Stated Complaint: SKIN COMPLAINT Hx Obtained From: Patient Hx Last Menstrual Period: 12/06/19 ?: No Pain Intensity: 3 - Allergy/Home Medications Allergies/Adverse Reactions: Allergies Allergy/AdvReac Type Severity Reaction Status Date / Time vancomycin Allergy See Comment Verified 12/27/19 13:06 Home Medications: Home Medications ALPRAZolam TAB* [Xanax TAB*] 0.5 mg PO BID MDD 2 tabs 12/01/15 [History Confirmed 12/27/19] Escitalopram * [Lexapro 20 mg (NF)] 20 mg PO DAILY 12/01/15 [History Confirmed 12/27/19] Omeprazole 40 mg PO DAILY 12/27/19 [History Confirmed 12/27/19] Sulfamethox/Trimethoprim DS* [Bactrim DS 800/160 TAB*] 1 tab PO BID 7 Days #14 tab 12/27/19 [Rx] hydrOXYzine HCL TAB* [Atarax TAB 50 MG *] 100 mg PO BEDTIME 12/27/19 [History Confirmed 12/27/19] PMH/Surg Hx/FS Hx/Imm Hx - Additional Past Medical History Additional PMH: MRSA GI/ History: Gastroesophageal Reflux Psychological History: Anxiety, Depression - Surgical History Surgical History: Yes Surgery Procedure, Year, and Place: ROTATOR CUFF RIGHT. RIGHT TRIGGER THUMB. KIDNEY STENT THEN REMOVED. APPENDIX. VAGINAL TEAR REPAIR - Family History Known Family History: Positive: Cardiac Disease, Hypertension, Diabetes Family History: R & n/C - Social History Occupation: Employed Full-time Lives: With Family Alcohol Use: Occasionally Alcohol Amount: a couple/week Substance Use Type: None Smoking Status (MU): Former Smoker Type: Cigarettes Amount Used/How Often: 1/2 PPD X 26 YEARS Have You Smoked in the Last Year: No When Did the Patient Quit Smoking/Using Tobacco: 05/24/2015 Household Exposure Type: Cigarettes - Immunization History Most Recent Influenza Vaccination: FALL 2014 Most Recent Tetanus Shot: Unknown Most Recent Pneumonia Vaccination: Has not had Review of Systems All Other Systems Reviewed And Are Negative: Yes Physical Exam - Summary Physical Exam Summary: GENERAL APPEARANCE: Well developed, well nourished, alert and cooperative, and appears to be in no acute distress. CARDIAC: Normal S1 and S2. No S3, S4 or murmurs. Rhythm is regular. There is no peripheral edema, cyanosis or pallor. Extremities are warm and well perfused. Capillary refill is less than 2 seconds. Peripheral pulses intact. LUNGS: Clear to auscultation without rales, rhonchi, wheezing or diminished breath sounds. ABDOMEN: Positive bowel sounds. Soft, nondistended, nontender. No guarding or rebound. No masses or hepatosplenomegally. MUSKULOSKELETAL: ROM intact to all extremities. No joint erythema or tenderness. Normal muscular development. Normal gait. SKIN: Skin normal color, texture and turgor. A 5 cm x 4 cm area of erythema with a 3.5 cm x 2 cm central area of induration with minimal fluctuance. Triage Information Reviewed: Yes Vital Signs: Initial Vital Signs Temp 98.1 F 12/27/19 13:00 Pulse 82 12/27/19 13:00 Resp 14 12/27/19 13:00 BP 130/74 12/27/19 13:00 Pulse Ox 97 12/27/19 13:00 Vital Signs Reviewed: Yes Procedures - Procedure Summary Procedure Summary: PROCEDURE NOTE: Incision and drainage of left groin abscess PROCEDURE: Informed consent was obtained and timeout protocol was performed prior to initiating the procedure. The skin was prepped with Betadine. The site was anesthetized with 1% lidocaine with epinephrine. A 1.5 cm linear incision was made and scant amount of purulent material expressed. The abscess was explored thoroughly and sequestered pockets were opened. A wound culture was obtained and is pending. A bulky gauze dressing was then placed. Bleeding was minimal. The patient tolerated the procedure well without complications. Standard post- procedure care is explained and return precautions were given. Course/Dx - Course Course Of Treatment: 49-year-old female presents for abscess to her left groin. 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 She is followed by Dr. Villafana, infectious disease, for this. States this abscess started approximately 2 days ago that has progressively worsened. He was able to express a small amount of drainage yesterday. Patient reports that her last episode required 2 rounds of Bactrim to fully clear. Denies fever or chills. Afebrile. Vital signs stable. Patient had a 5 cm x 4 cm area of erythema with a 3.5 cm x 2 cm central area of induration with minimal fluctuance consistent with an abscess. An incision and drainage was performed and a scant amount of purulent drainage was expressed from the abscess. A wound culture was taken and is pending. We will start her on Bactrim DS 1 tablet twice a day 7 days and provide her with a refill considering her last episode. She is to follow-up with infectious disease in 7 days. Anticipatory guidance and warning symptoms were reviewed the patient. Verbalizes understanding and agrees with plan of care. - Differential Diagnoses - Skin Complaint Differential Diagnoses: Abscess, Cellulitis - Diagnoses Provider Diagnosis: Abscess of left groin Discharge ED - Sign-Out/Discharge Documenting (check all that apply): Patient Departure All imaging exams completed and their final reports reviewed: No Studies - Discharge Plan Condition: Stable Disposition: HOME Prescriptions: Sulfamethox/Trimethoprim DS* [Bactrim DS 800/160 TAB*] 1 tab PO BID 7 Days #14 tab Patient Education Materials: Abscess (ED) Referrals: Humble Burleson DO [Primary Care Provider] - Valentin PARKER,Nathan Lauren [Medical Doctor] - 7 Days Additional Instructions: We performed an incision and drainage of your abscess in the clinic and was only able to drain a small amount of purulent drainage. We are leaving the incision open to allow for continued drainage. We sent a wound culture today to see what bacteria grows. It may take 48-72 hours to get these results. Leave the dressing that was applied in the clinic in place until tomorrow morning. Starting tomorrow you may shower as normal. Keep a gauze dressing over the wound to absorb any drainage. This should be changed once or twice a day or any time the dressing becomes wet or soiled. Start Bactrim DS 1 tab twice a day for 7 days. Be sure to complete the entire course even if feeling better. Take acetaminophen (Tylenol) or ibuprofen (Advil, Motrin) according to directions as needed for pain. Follow up with infectious disease in 7 days. Seek immediate medical attention in the emergency room if you develop fever greater than 100.5 F, the redness spreads rapidly, you have severe pain that is not managed with the pain medication, or have any worsening of symptoms. - Billing Disposition and Condition Condition: STABLE Disposition: Home
[2019-12-27] MEDS ORDERED: Lidocaine 1% w EPI 1:200,000* SDV 30 ML VIAL INJ ONE (13:41)
--- NOTE | 2019-12-30 09:31 | UC ---
- Progress Note Progress Note: Wound culture and sensitivity from December 27, 2019 comes back positive worse staph aureus positive. Patient was placed on Bactrim on December 27, 2019. The susceptibility indicates the MRSA is not resistant to Bactrim. Patient call patient inform the patient that it is positive for MRSA and that the Bactrim should cover the MRSA. Patient's to follow-up with Dr. Villafana and get reevaluated sooner if not improving or worse. Course/Dx - Diagnoses Provider Diagnoses: Abscess of left groin Discharge ED - Sign-Out/Discharge Documenting (check all that apply): Patient Departure All imaging exams completed and their final reports reviewed: No Studies - Discharge Plan Condition: Stable Disposition: HOME Prescriptions: Sulfamethox/Trimethoprim DS* [Bactrim DS 800/160 TAB*] 1 tab PO BID 7 Days #14 tab Patient Education Materials: Abscess (ED) Referrals: Valentin PARKER,Nathan Lauren [Medical Doctor] - 7 Days Humble Burleson DO [Primary Care Provider] - Additional Instructions: We performed an incision and drainage of your abscess in the clinic and was only able to drain a small amount of purulent drainage. We are leaving the incision open to allow for continued drainage. We sent a wound culture today to see what bacteria grows. It may take 48-72 hours to get these results. Leave the dressing that was applied in the clinic in place until tomorrow morning. Starting tomorrow you may shower as normal. Keep a gauze dressing over the wound to absorb any drainage. This should be changed once or twice a day or any time the dressing becomes wet or soiled. Start Bactrim DS 1 tab twice a day for 7 days. Be sure to complete the entire course even if feeling better. Take acetaminophen (Tylenol) or ibuprofen (Advil, Motrin) according to directions as needed for pain. Follow up with infectious disease in 7 days. Seek immediate medical attention in the emergency room if you develop fever greater than 100.5 F, the redness spreads rapidly, you have severe pain that is not managed with the pain medication, or have any worsening of symptoms. - Billing Disposition and Condition Condition: STABLE Disposition: Home
== END 2019-12-27 14:16 | disposition home or self-care (01) ==
LOC: UCCORT 12:42
DX: L02.214 Cutaneous abscess of groin (principal); K21.9 Gastro-esophageal reflux disease without esophagitis; F41.9 Anxiety disorder, unspecified; F32.9 Major depressive disorder, single episode, unspecified; Z79.899 Other long term (current) drug therapy; Z88.1 Allergy status to other antibiotic agents; Z86.14 Personal history of Methicillin resistant Staphylococcus aureus infection; Z87.891 Personal history of nicotine dependence
CPT/HCPCS: 10060; 87070; 87077; 87186; 87205; 87640; 87641; 99212; G0463; J2001